=== PATIENT | female | born 1960 | race Caucasian/White ===

== ENCOUNTER → 2019-04-04 | Outpatient (CLI) | payer MEDICARE | END | disposition home or self-care (01) | LOC: LAB SHORT 12:00 → LAB 12:00 | DX: N89.8 Other specified noninflammatory disorders of vagina (principal) | CPT/HCPCS: 87070; 87205 ==

== ENCOUNTER 2021-01-20 18:58 | Inpatient (IN) | payer MEDICARE, OTHER ==
[~2021-01-20] VITALS: Ht 165.1 cm; Wt 89.6 kg
[2021-01-20 20:02] LABS: Influenza A, PCR NEGATIVE (NEGATIVE); Influenza B, PCR NEGATIVE (NEGATIVE); Resp Syncytial Virus, PCR NEGATIVE (NEGATIVE)
[2021-01-20 20:11] LABS: BASOPHILS ABSOLUTE AUTO 0.01 K/mm3 (0.00-0.23); BASOPHILS PERCENT AUTO 0 % (0-2); EOSINOPHILS PERCENT AUTO 0 % (0-6); Hematocrit 43.7 % (33.0-51.0); Hemoglobin 14.8 g/dL (11.5-16.0); IMMATURE GRAN ABSOLUTE AUTO 0.02 K/mm3 (0.00-0.10); IMMATURE GRAN PERCENT AUTO 0 % (0-1); LYMPHOCYTES ABSOLUTE AUTO 0.69 K/mm3 (0.84-5.20); LYMPHOCYTES PERCENT AUTO 13 % (21-46); MONOCYTES ABSOLUTE AUTO 0.16 K/mm3 (0.16-1.47); MONOCYTES PERCENT AUTO 3 % (4-13); Mean Corpuscular HGB 31.7 pg (26.0-34.0); Mean Corpuscular HGB Conc 33.9 g/dL (31.5-36.5); Mean Corpuscular Volume 94 fL (80-100); Mean Platelet Volume 9.6 fL (9.1-12.4); NEUTROPHILS ABSOLUTE AUTO 4.64 K/mm3 (1.96-9.15); NEUTROPHILS PERCENT AUTO 84 % (41-73); Platelet Count 172 K/mm3 (150-400); RDW Coefficient Variation 12.9 % (11.7-14.2); RDW Standard Deviation 44.2 fL (35.1-46.3); Red Blood Cell Count 4.67 M/mm3 (3.80-5.20); White Blood Cell Count 5.52 K/mm3 (4.00-11.30)
[2021-01-20 20:11] LABS: SARS-Cov-2 (COVID-19) PCR, MMC POSITIVE (NEGATIVE)
[2021-01-20 20:32] LABS: Alanine Aminotransfer (ALT/SGP 46 U/L (12-78); Albumin, Blood 2.7 g/dL (3.4-5.0); Albumin/Globulin Ratio 0.6 (0.8-1.8); Alk Phos 78 U/L (50-136); Anion Gap 5 mmol/L (6-16); Aspartate Aminotrans (AST/SGOT 54 U/L (12-37); Bilirubin, Total 0.4 mg/dL (0.1-1.0); Blood Urea Nitrogen 10 mg/dL (8-24); Bun/Creatinine Ratio 14.8 (12.0-20.0); CO2, Blood 25 mmol/L (21-32); Calcium, Blood 8.6 mg/dL (8.5-10.1); Chloride, Blood 106 mmol/L (98-108); Creatinine, Blood 0.68 mg/dL (0.40-1.00); Globulin, Blood 4.6 g/dL (2.2-4.0); Glomerular Filtration Rate >60 (60-); Glucose, Blood 112 mg/dL (70-99); Potassium, Blood 4.3 mmol/L (3.5-5.5); Sodium, Blood 136 mmol/L (136-145); Total Protein, Blood 7.3 g/dL (6.4-8.2)
[2021-01-20] MEDS ORDERED: IPRAT-ALBUT 0.5-3 ML INH (21:36)
[2021-01-20] MEDS ORDERED: LEVOTHYROXINE PO (21:37)
[2021-01-20] MEDS ORDERED: CARBLEV250 SL (21:38)
[2021-01-20] MEDS ORDERED: OMEP20ER PO (21:39)
[2021-01-20] MEDS ORDERED: PIRO10 PO (21:39)
[2021-01-20] MEDS ORDERED: MONT10T PO (21:39)
[2021-01-20] MEDS ORDERED: Lovastatin20 MG PO (21:39)
[2021-01-20] MEDS ORDERED: FLUT1DIS8 INH (21:39)
[2021-01-20] MEDS ORDERED: COMBIVENT RESPIM4 G1 INH (21:40)
[2021-01-20] MEDS ORDERED: CLIMARA1 EACH TOP (21:40)
[2021-01-20] MEDS ORDERED: prempro (21:42)
[2021-01-21 08:24] LABS: Ferritin, Serum 1200 ng/mL (8-252); Lactate Dehydrogenase (Ld),Bld 431 U/L (100-240)
--- NOTE | 2021-01-21 17:14 | NUR ---
ADMIT NOTE RECIEVED REPORT FROM JOSE BORRERO IN ED. PT TO ROOM VIA GURNEY, TRANSFER 2 PERSON ASSIST TO BED. PT DESATURATED ON 15L HF TO 80-87%, REPLACED AIRVO AT 55L AND 77% FIO2; PT SLOW RECOVERY, PLACED ON RIGHT SIDE TO SLEEP; TITRATED FIO2 TO 87%; SPO2 >90% WHILE SLEEPING ON SIDE. PT A&Ox4; FORGETFUL AT TIMES. PT DENIES PAIN, CHEST PAIN, NAUSEA AND DIZZINESS. PT RECEIVING IV STEROIDS. OTHER VSS. NO OTHER ACUTE CHANGES NOTED. WILL CONTINUE TO MONITOR UNTIL REPORT GIVEN TO ONCOMING RN.
[2021-01-22 03:57] LABS: BASOPHILS ABSOLUTE AUTO 0.02 K/mm3 (0.00-0.23); BASOPHILS PERCENT AUTO 0 % (0-2); EOSINOPHILS PERCENT AUTO 0 % (0-6); Hematocrit 44.1 % (33.0-51.0); Hemoglobin 14.6 g/dL (11.5-16.0); IMMATURE GRAN ABSOLUTE AUTO 0.04 K/mm3 (0.00-0.10); IMMATURE GRAN PERCENT AUTO 0 % (0-1); LYMPHOCYTES ABSOLUTE AUTO 1.06 K/mm3 (0.84-5.20); LYMPHOCYTES PERCENT AUTO 11 % (21-46); MONOCYTES ABSOLUTE AUTO 0.45 K/mm3 (0.16-1.47); MONOCYTES PERCENT AUTO 5 % (4-13); Mean Corpuscular HGB 31.3 pg (26.0-34.0); Mean Corpuscular HGB Conc 33.1 g/dL (31.5-36.5); Mean Corpuscular Volume 95 fL (80-100); Mean Platelet Volume 9.8 fL (9.1-12.4); NEUTROPHILS ABSOLUTE AUTO 7.92 K/mm3 (1.96-9.15); NEUTROPHILS PERCENT AUTO 84 % (41-73); Platelet Count 193 K/mm3 (150-400); RDW Coefficient Variation 12.7 % (11.7-14.2); RDW Standard Deviation 44.4 fL (35.1-46.3); Red Blood Cell Count 4.66 M/mm3 (3.80-5.20); White Blood Cell Count 9.49 K/mm3 (4.00-11.30)
[2021-01-22 04:20] LABS: Alanine Aminotransfer (ALT/SGP 24 U/L (12-78); Albumin, Blood 2.4 g/dL (3.4-5.0); Albumin/Globulin Ratio 0.5 (0.8-1.8); Alk Phos 74 U/L (50-136); Anion Gap 4 mmol/L (6-16); Aspartate Aminotrans (AST/SGOT 66 U/L (12-37); Bilirubin, Total 0.4 mg/dL (0.1-1.0); Blood Urea Nitrogen 16 mg/dL (8-24); Bun/Creatinine Ratio 27.3 (12.0-20.0); CO2, Blood 28 mmol/L (21-32); Calcium, Blood 9.2 mg/dL (8.5-10.1); Chloride, Blood 108 mmol/L (98-108); Creatinine, Blood 0.59 mg/dL (0.40-1.00); Globulin, Blood 4.5 g/dL (2.2-4.0); Glomerular Filtration Rate >60 (60-); Glucose, Blood 211 mg/dL (70-99); Potassium, Blood 4.6 mmol/L (3.5-5.5); Sodium, Blood 140 mmol/L (136-145); Total Protein, Blood 6.9 g/dL (6.4-8.2)
--- NOTE | 2021-01-22 07:04 | NUR ---
PT DESATS TO 85% WITH BED MOBILITY. REQUIRED NON REBREATEHR OVER HFNC TO RETURN PT TO O2 SAT ABOVE 90%. THEN ABLE TO RETURN TO PREVIOUS HFNC SETTING AND SUSTAIN AT 93%. PT REPORTS FEELING SOB WITH THIS EPISODE, BUT REPORTS IMPROVEMENT WIOTH 02 SAT ABOVE 90%.
--- NOTE | 2021-01-22 18:30 | NUR ---
SHIFT SUMMARY PT A&Ox4; CALM AND COOPERATIVE WITH CARE. PT RESTING IN BED DURING SHIFT. UP TO CHAIR FOR MAJOIRTY OF SHIFT. PT DENIES PAIN, CHEST PAIN, NAUSE AND DIZZINESS. PT SOB WITH EXERTIONS, SPO2 88-92% ON AIRVO 60L AT 84% FIO2; DESATURATED WITH MOVEMENT OR TALKING, RECOVERS QUICKLY. PT RECEIVING IV STEROIDS. OTHER VSS. NO OTHER ACUTE CHANGES NOTED. WILL CONTINUE TO MONITOR UNTIL REPORT GIVEN TO ONCOMING RN.
[2021-01-23 04:49] LABS: BASOPHILS ABSOLUTE AUTO 0.01 K/mm3 (0.00-0.23); BASOPHILS PERCENT AUTO 0 % (0-2); EOSINOPHILS PERCENT AUTO 0 % (0-6); Hematocrit 42.9 % (33.0-51.0); Hemoglobin 14.3 g/dL (11.5-16.0); IMMATURE GRAN ABSOLUTE AUTO 0.07 K/mm3 (0.00-0.10); IMMATURE GRAN PERCENT AUTO 1 % (0-1); LYMPHOCYTES ABSOLUTE AUTO 0.85 K/mm3 (0.84-5.20); LYMPHOCYTES PERCENT AUTO 8 % (21-46); MONOCYTES PERCENT AUTO 6 % (4-13); Mean Corpuscular HGB 31.4 pg (26.0-34.0); Mean Corpuscular HGB Conc 33.3 g/dL (31.5-36.5); Mean Corpuscular Volume 94 fL (80-100); Mean Platelet Volume 10.5 fL (9.1-12.4); NEUTROPHILS PERCENT AUTO 86 % (41-73); Platelet Count 248 K/mm3 (150-400); RDW Coefficient Variation 12.5 % (11.7-14.2); RDW Standard Deviation 43.5 fL (35.1-46.3); Red Blood Cell Count 4.56 M/mm3 (3.80-5.20); White Blood Cell Count 10.83 K/mm3 (4.00-11.30)
[2021-01-23 05:11] LABS: Anion Gap 5 mmol/L (6-16); Blood Urea Nitrogen 20 mg/dL (8-24); Bun/Creatinine Ratio 36.8 (12.0-20.0); CO2, Blood 26 mmol/L (21-32); Calcium, Blood 9.2 mg/dL (8.5-10.1); Chloride, Blood 107 mmol/L (98-108); Creatinine, Blood 0.54 mg/dL (0.40-1.00); Glomerular Filtration Rate >60 (60-); Glucose, Blood 217 mg/dL (70-99); Potassium, Blood 4.5 mmol/L (3.5-5.5); Sodium, Blood 138 mmol/L (136-145)
--- NOTE | 2021-01-23 10:44 | NUR ---
CARE ASSUMPTION THIS RN ASSUMED CARE FROM AGNIESZKA GARCIA AT 0700. PATIENT IS A/OX4. VSS. SPO2 >90% ON CPAP 10 80%. PATIENT REPORTS NO PAIN, CHEST PAIN, OR SHORTNESS OF BREATH. PATIENT SITTING IN CHAIR AND PERFERS TO SIT IN CHAIR THAN LAY IN BED. PATIENT IS A STAND BY ASSIST TO BEDSIDE COMODE. CALL LIGHT WITHIN REACH. WILL CONTINUE TO MONITOR AND PROVIDE CARE
--- NOTE | 2021-01-23 18:44 | NUR ---
SHIFT SUMMARY PATIENT A/OX4. VSS. SPO2>90% ON AIRVO 55 80%. PATIENT HAS SOB WITH ACTIVITY. PATIENT RATHER LAY IN CHAIR THAN BED, STATES IT IS MORE COMFORTABLE. NO ACUTE CHANGES THIS SHIFT. CALL LIGHT WITHIN REACH. WILL CONTINUE TO MONITOR AND PROVIDE CARE UNTIL HAND OFF WITH NEXT SHIFT.
--- NOTE | 2021-01-24 01:26 | NUR ---
PATIENT INCREASED ANXIETY THIS EVENING " MACHINE NOT WORKING" NOTED PATIENT TAKING AIRVO OFF EARLIER THIS EVENING, EDUCATION WAS PROVIDED, DESATURATIONS 83-84% INCREASED FIO2 85 TO 90%, PATIENT BECAME INCREASILY ANXIOUS AND WANTING A NEW MACHINE ASKING FOR RESPIRATORY, THIS LN CALLED RESPIRATORY ASKING ARAMIS IF HE COULD SPEAK WITH PATIENT AND COMFORT HER, I CALLED DR. MICHAEL ON ANXIETY, NO NEW ORDERS AT THIS TIME, WANTS TO KNOW IF RESPIRATORY WILL PUT HER ON CPAP/BIPAP THAT DOESN'T DECREASE ANXIETY TO CALL DR. MICHAEL BACK, [facility].
--- NOTE | 2021-01-24 02:11 | NUR ---
PATIENT FIO2 WAS INCREASED TO 95% PATIENT HAD INCREASED ANXIETY, ARAMIS CALLED DR. MICHAEL, THIS LN RECEIVED NEW ORDERS FOR LORAZEPAM 0.5-1MG IVP X ONE, PATIENT RECEIVED 1MG IVP ATIVAN SATURATIONS > 91% AIRVO 55L FIO2 95% RESTING COMFORTABLY IN BED NOT PULLING ON TUBING AND TAKING OUT OF NOSTRILS.
--- NOTE | 2021-01-24 05:31 | NUR ---
PATIENT CURRENTLY IS ON CPAP 12 1 FLEX 85% FIO2 RR 31 SATURATIONS 91-93%, ANXIOUS TRIES TO REMOVE MASK HAVING TO GO IN READJUST MULTIPLE TIMES, EDUCATION IS PROVIDED WITH EACH ENCOUNTER, PATIENT HAD ONLY SLEPT ABOUT AN HOUR TONIGHT AFTER GETTING ATIVAN SEEMED MORE RELAXED UNTIL AROUND 0430. LUNGS ARE DIMINISHED THROUGHOUT LUNG CHUA, DRY COUGH, UNABLE TO TOLERATE WITH MASK OFF, WAS PREVIOUSLY ON AIRVO 55L 85% FIO2 ADJUSTED TO 60L 100% FIO2 DESATURATIONS IN 80'S WAS SWITCHED TO CPAP NOW STABLE AT 91-93%. WCTM UNTIL SHIFT CHANGE.
--- NOTE | 2021-01-24 09:11 | NUR ---
Pt switched over to Airvo, to take morning medications. She is tolerating it well.
--- NOTE | 2021-01-24 15:38 | NUR ---
Pt c/o new IV in the LAC space "tender". Requested new IV placeed. Attempted once in the right arm, but unsuccessful. AFter that pt stated, "Let's just leave the other one in, it's okay for now." States that she is really tired and just wants to sleep. Blinds closed, room lights dimmed. She is still wearing the AirVo, and spo2 95% on 90% fio2, 60 liter O2 flow.
--- NOTE | 2021-01-24 22:23 | NUR ---
CARE NOTE PT IS ALERT AND ORIENTED X 4, ABLE TO MAKE NEEDS KNOWN. PT DENIED CHEST PAIN/PRESSURE BUT REPORTED HEADACHE. MEDICATED PER EMAR. PT WAS ON AIRVO 60L 85% FIO2 WHEN ASSUMED CARE. PT IS MOUTH BREATHER WHEN SLEEPING AND WOULD DESATURATE TO 85%, THIS INCREASED FIO2 TO 100%. THIS NURSE ALSO ENCOURAGED DEEP BREATHIN THROUGH NOSE AND PT MAINTAINED SPO2 88-92%. AFTER MEDICATION PASS AT 2100, THIS NURSE ENCOURAGED PT TO UTILIZE CPAP DUE TO PT APPEARING FATIGUED BY EFFORT TO BREATH ON AIRVO. RESPIRATORY THERAPIST JUAN ASSISTED THIS NURSE IN CHANGING AIRVO TO CPAP, PRESSURE 12, FIO2 90% AND SPO2 NOW 96%. REMDESIVIR NOW INFUSING PER ORDERS. PT UTILIZED BEDSIDE COMMODE. CALL LIGHT IN REACH. WILL CONTINUE TO MONITOR.
--- NOTE | 2021-01-25 04:51 | NUR ---
SHIFT SUMMARY PT ALERT AND ORIENTED X 4. PT NOW ON AIRVO 60L 100% FIO2 AND SPO2 AT 97%, THIS NURSE WILL TITRATE FIO2 DOWN NEXT TIME IN ROOM TOLERATED. VITAL SIGNS HAVE REMAINED STABLE. PT DESATURATES WITH EXERTION TO 85-88% BUT RECOVERS QUICKLY. SHE CONTINUED TO DENY CHEST PAIN/PRESSURE DURING SHIFT. NO CARDIAC EVENTS DURING SHIFT, PLANTING MACHINE OPERATOR IN PLACE AND PT REMAINS IN SR PER REPORT. NO OTHER ACUTE CHANGES NOTED. CALL LIGHT IN REACH. WILL CONTINUE TO MONITOR.
--- NOTE | 2021-01-25 18:37 | NUR ---
SHIFT SUMMARY PT HAS BEEN RESTING QUIETLY IN ROOM. PT HAS SPENT A LARGE PORTION OF THE DAY IN THE BEDSIDE CHAIR AND REQUESTED ASSISTANCE TO GET BACK TO BED AROUND 1700. PT HAS BEEN WITHDRAWN WITH A FLAT AFFECT. VITAL SIGNS HAVE BEEN STABLE, SpO2 HAS MAINTAINED >88%. PT GETS SHORT OF BREATH WITH ANY ACTIVITY.
--- NOTE | 2021-01-26 17:04 | NUR ---
A&Ox4, pleasant with cares. VSS on heated highflow day care aide during the day at 65L and 95% sating low to mid 90s. IV solumedrol given. COVID precautions taken.RT administered nebs and inhalers. Up SBA to commode.
[2021-01-27 05:07] LABS: Albumin, Blood 2.2 g/dL (3.4-5.0); Anion Gap 7 mmol/L (6-16); Blood Urea Nitrogen 18 mg/dL (8-24); Bun/Creatinine Ratio 41.7 (12.0-20.0); CO2, Blood 28 mmol/L (21-32); Calcium, Blood 8.8 mg/dL (8.5-10.1); Chloride, Blood 101 mmol/L (98-108); Creatinine, Blood 0.43 mg/dL (0.40-1.00); Glomerular Filtration Rate >60 (60-); Glucose, Blood 331 mg/dL (70-99); Magnesium, Blood 2.4 mg/dL (1.6-2.4); Phosphorus, Blood 3.2 mg/dL (2.5-4.9); Potassium, Blood 4.8 mmol/L (3.5-5.5); Sodium, Blood 136 mmol/L (136-145)
--- NOTE | 2021-01-27 07:22 | NUR ---
SHIFT SUMMARY PT ON CPAP 12 95% FIO2 WHILE ASLEEP, AIRVO 65L 95% FIO2 WHILE AWAKE. ALERT AND ORIENTED X4. PLEASANT AND COOPERATIVE TO CARE. C/O 8/10 HEADACHE TO START EVENING, RELIEVED PER TYLENOL. X1 SBA TO BEDSIDE COMMODE. MAINTAINED SATS OVER 92% AT REST, DESATS WITH ACTIVITY. HR NSR, BP STABLE. PT IN BED AWAKE WITH CALL ALARM AT SIDE
--- NOTE | 2021-01-27 17:08 | NUR ---
Pt is A&O, pleasant with cares. VSS on heated highflow ethyl blender. Pt was titrated down to 65L and 85% today sating mid 90s most of the time. Pt does drop to low to mid 80s when up to the BSC.
[2021-01-28 11:43] LABS: Source, Urine Clean Catch
[2021-01-28 12:02] LABS: Appearance, Urine Clear (Clear); Bilirubin, Urine Neg (Neg); Blood, Urine 3+ (Neg); Color, Urine Yellow (P-Yellow); Glucose Qualitative, Urine 4+ (Neg); Ketones, Urine Neg (Neg); Leukocyte Esterase, Urine Neg (Neg); Nitrite, Urine Neg (Neg); Protein, Urine Neg (Neg); Specific Gravity, Urine 1.015 (1.003-1.022); Urobilinogen, Urine NORM (Normal); pH, Urine 6.5 (5.0-8.0)
[2021-01-28 12:14] LABS: Bacteria Few /hpf; Mucus Light (0-Heavy); Squamous Epithelial Cells Mod /hpf (Few); White Blood Cells, Urine 0-2 /hpf (0-5)
--- NOTE | 2021-01-28 16:16 | NUR ---
Pt is A&O x4, pleasant with cares. VSS on heated highflow bulk pallet builder settings at 55L 70-80% FiO2. Pt desats when up to commode to low 80s. Pt was up in chair for several hours today. Pt is working on laying on sides and stomach as much as possible. Pt complained of frequent urination and sediment seen in urine, notified and UA ordered. +glucose and blood in urine. Chem panel showed glucose has been elevated in AM. POCT taken and cbg was 398, MD notifed and sliding scale was added in along with ACHS orders. Pt reported that she previously did take metformin for DM, but has been diet controlled the last 4 years. Pt is receiving IV solumedrol.
--- NOTE | 2021-01-29 08:15 | NUR ---
INITIAL ASSESSMENT: Patient was resting on her right side sleeping, easily awakens with verbal stimuli. Patient is alert and oriented x4. She denies pain at this time. HRR. LS Dim T/O, she is 90% on AIRVO 60l FIO2 100%. Patient has a harsh cough, she states she has been coughing up green sputum. BT+. PPP. VSS. Patient assisted to the BSC and then the chair, with activity her oxygen saturations dropped to the high 70s. After about 5min she was able to recover back up to 90%. AM meds given at this time. CBG 338, 8 units regular insulin given. Patient denies other needs at this time, Call light in reach. Will continue to monitor.
--- NOTE | 2021-01-29 10:50 | NUR ---
Fall: This RN was assisting patient back to bed, she used the BSC and then was headed back to bed. She took one step and then her legs gave out from underneath her, this RN assisted her to the floor. Patient denies pain. She has two small red abrasions on her back from scraping against the BSC. She deneis pain. VSS. Patient was assisted back to bed via 3 person assist. MD notified. Patient denies other needs at this time. Call light in reach, will continue to monitor.
--- NOTE | 2021-01-29 12:15 | NUR ---
Update: Post fall the patient was hypertensive, BP has normalized now. CBG 422, notified, 20 units long acting insulin given and 10 units of regular insulin per medium sliding scale. Patient denies other needs at this time. Call light in reach, will continue to monitor.
--- NOTE | 2021-01-29 16:30 | NUR ---
Assessment: Assessment unchanged from initial assessment. VSS. Patient is in bed lying on her left side. I attempted to titrate her high flow NC down to 50L and 90% FIO2, while at rest patients saturations are dropping down to 85%, FIO2 increased back up to 95%, pts oxygen saturations increased to 90%. Patient denies needs at this time. Call light in reach, will continue to monitor.
--- NOTE | 2021-01-29 18:46 | NUR ---
Summary: Patient had a good day. At the start of the shift she was on 60L 100% FIO2, she is currently down to 50L 100%. VSS t/o the shift. Blood sugars have been above 300 all day, MD aware, Momo added. Patient had an assisted fall today after trying to get back to bed from the BSC, small abrasions to mid back sustained, otherwise patient has had no c/o pain. Patient has been OOB for breakfast and dinner, her oxygen saturations improve while sitting in the recliner. No other changes this shift, will report to oncoming RN.
--- NOTE | 2021-01-30 18:32 | NUR ---
SHIFT SUMMARY PT A&O X4. SPO2 > 90% ON AIRVO @ 60L, FIO2 100%. PT DESAT W/ ACTIVITY, BUT QUICKLY RECOVERS W/ NONREBREATHER APPLIED IN ADDITION TO AIRVO. PT CBG ELEVATED, INSULIN MEDIUM CS INCREASED TO HIGH CS THIS SHIFT PER MD.
--- NOTE | 2021-01-31 06:23 | NUR ---
VSS. MILD SOB AT START OF SHIFT. SCHEDULED NEBS/RT TX GIVEN. PT STATES THEY "HELP HER GREATLY". AIRVO AT 60L/100% O2. DNR STATUS. NONREBREATHER AT BEDSIDE. PT USES PRN. 1 ASSIST TO BSC. PT CALLS APPROPRIATELY. BIPAP HS. NO ISSUES THROUGHOUT SHIFT.
--- NOTE | 2021-01-31 19:43 | NUR ---
SHIFT SUMMARY PT A&O X4. PT CONTINUES ON AIRVO @ 60L, FIO2 95-100% W/ FREQUENT USE OF 15L NRB IN ADDITION TO AIRVO FOR GETTING UP TO BSC OR ASSISTANCE AT REST WHEN SOB. OTHER VSS. NO EVENTS T/O DAY.
--- NOTE | 2021-02-01 07:02 | NUR ---
SHIFT SUMMARY PT IS ALERT AND ORIENTED. SHE IS VERY WEAK THIS MORNING AND WAS UNABLE TO GET UP TO BSC WITH ASSIST. VITAL SIGNS ARE STABLE AND THERE HAVE BEEN NO ACUTE CHANGES. SHE HAS BEEN ON CPAP 12/100% FIO2 WITH SATS ABOVE 88% AND WOULD DESAT UPON EXERTSION TO LOW 80'S BUT WILL RECOVER QUICKLY. ON THE HFT SETTINGS SHE IS 60L 100% FIO2 AND NONREBREATHER OVER WHEN NEEDED PER PT. CALL LIGHT IS WITHIN REACH.
--- NOTE | 2021-02-01 10:17 | NUR ---
CARE ASSUMPTION THIS RN ASSUMED CARE FROM JOSE RN AT 0700. PATIENT IS A/OX4. VSS. SPO2 >90% ON CPAP 12 100%. PATIENT DESATS WITH ANY EXERTION INTO 80S, AND RECVOERS SLOWLY. PATIENT IS ABLE TO CHANGE POSITIONS IN THE BED WITH MINIMAL HELP. CALL LIGHT WITHIN REACH AND BED IN LOWEST POSITION. WILL CONTINUE TO MONITOR AND PROVIDE CARE.
--- NOTE | 2021-02-01 18:12 | NUR ---
SHIFT SUMMARY PATIENT A/OX4. VSS. SPO2 >88% ON CPAP THROUGHOUT THE DAY. PATIENT CURRENTLY EATING AND SPO2 IS ABOUT 86-87 ON AIRVO 66N901% AND NRB AT 15L. NO ACUTE CHANGES. CALL LIGHT WITHIN REACH. WILL CONTINUE TO MONITOR AND PROVIDE CARE UNTIL HAND OFF WITH NEXT SHIFT.
--- NOTE | 2021-02-02 05:56 | NUR ---
SHIFT SUMMARY PT IS ALERT AND ORIENTED. VITALS HAVE BEEN STABLE. THERE HAVE BEEN NO CHANGES. PT REMAIN AT SAME SETTING FOR OXYGENATION. PT FEELS VERY WEAK. SHE WAS ABLE TO GET UP TO THE COMMODE WITH A STRUGGLE AND DESATING IN THE LOW 80'S. PT SEEMS FRUSTRATED WITH CARE BUT IS COOPERATIVE. CALL LIGHT IS WITHIN REACH.
--- NOTE | 2021-02-02 09:55 | NUR ---
CARE ASSUMPTION THIS RN ASSUMED CARE FROM ELSA RN AT 0700. PATIENT IS A/OX4. VSS. SPO2 >90% ON CPAP 12 100%. PATIENT REPORTS NO CHEST PAIN, PAIN, OR SOB. CALL LIGHT WITHIN REACH. WILL CONTINUE TO MONITOR AND PROVIDE CARE
--- NOTE | 2021-02-02 18:22 | NUR ---
SHIFT SUMMARY PATIENT IS A/OX4. VSS. SPO2 >90% PM AIRVO 60L 100% AND USES NRB AT 15L WHEN NEEDED FOR SOB WHILE ON AIRVO. NO ACUTE CHANGES THIS SHIFT. WILL CONTINUE TO MONITOR AND PROVIDE CARE UNTIL HAND OFF WITH NEXT SHIFT. CALL LIGHT WITHIN REACH AND BED IN LOWEST POSITION.
[2021-02-03 04:20] LABS: BASOPHILS ABSOLUTE AUTO 0.03 K/mm3 (0.00-0.23); BASOPHILS PERCENT AUTO 0 % (0-2); EOSINOPHILS ABSOLUTE AUTO 0.01 K/mm3 (0.00-0.68); EOSINOPHILS PERCENT AUTO 0 % (0-6); Hematocrit 41.5 % (33.0-51.0); IMMATURE GRAN ABSOLUTE AUTO 0.17 K/mm3 (0.00-0.10); IMMATURE GRAN PERCENT AUTO 1 % (0-1); LYMPHOCYTES ABSOLUTE AUTO 0.55 K/mm3 (0.84-5.20); LYMPHOCYTES PERCENT AUTO 3 % (21-46); MONOCYTES ABSOLUTE AUTO 0.38 K/mm3 (0.16-1.47); MONOCYTES PERCENT AUTO 2 % (4-13); Mean Corpuscular HGB 31.5 pg (26.0-34.0); Mean Corpuscular HGB Conc 33.7 g/dL (31.5-36.5); Mean Corpuscular Volume 93 fL (80-100); Mean Platelet Volume 11.3 fL (9.1-12.4); NEUTROPHILS ABSOLUTE AUTO 15.61 K/mm3 (1.96-9.15); NEUTROPHILS PERCENT AUTO 93 % (41-73); Platelet Count 221 K/mm3 (150-400); RDW Standard Deviation 41.2 fL (35.1-46.3); Red Blood Cell Count 4.45 M/mm3 (3.80-5.20); White Blood Cell Count 16.75 K/mm3 (4.00-11.30)
[2021-02-03 04:54] LABS: Alanine Aminotransfer (ALT/SGP 28 U/L (12-78); Albumin, Blood 1.7 g/dL (3.4-5.0); Albumin/Globulin Ratio 0.5 (0.8-1.8); Alk Phos 103 U/L (50-136); Anion Gap 8 mmol/L (6-16); Aspartate Aminotrans (AST/SGOT 18 U/L (12-37); Bilirubin, Total 0.5 mg/dL (0.1-1.0); Blood Urea Nitrogen 17 mg/dL (8-24); Bun/Creatinine Ratio 41.7 (12.0-20.0); CO2, Blood 29 mmol/L (21-32); Calcium, Blood 8.9 mg/dL (8.5-10.1); Chloride, Blood 103 mmol/L (98-108); Creatinine, Blood 0.41 mg/dL (0.40-1.00); Globulin, Blood 3.7 g/dL (2.2-4.0); Glomerular Filtration Rate >60 (60-); Glucose, Blood 115 mg/dL (70-99); Potassium, Blood 4.4 mmol/L (3.5-5.5); Sodium, Blood 140 mmol/L (136-145); Total Protein, Blood 5.4 g/dL (6.4-8.2)
--- NOTE | 2021-02-03 05:47 | NUR ---
SHIFT SUMMARY PT ALERT AND ORIENTED. THERE HAVE BEEN NO ACUTE CHANGES. VITAL SIGNS HAVE BEEN STABLE AND NO CHANGES TO OXYGENATION SETTINGS. CPAP 12 FIO2 100%. PT HAS BEEN FRUSTRATED AND EMOTIONAL T/O THE NIGHT. SHE WAS UNABLE TO GET UP TO THE COMMODE DUE OT WEAKNESS AND USED A BEDPAN. CALL LIGHT IS WITHIN REACH.
[2021-02-03 18:32] LABS: PCO2 Arterial 39.8 mmHg (35-45); PO2 Arterial 60.5 mmHg (80-100); pH Blood Arterial 7.45 (7.35-7.45)
--- NOTE | 2021-02-03 18:38 | NUR ---
SHIFT SUMMARY PT HAS BEEN RESTING IN BEDSIDE CHAIR AND BED. PT DESATS WITH ANY ACTIVITY, AT TIMES DROPPING TO 70% SpO2. PT RECOVERS OXYGEN SATURATION SLOWLY AND STEADILY. SpO2 HAS BEEN 88-91% FOR THE MAJORITY. PT HAS HAD A FLAT AFFECT AND EXPRESSED A FRUSTRATION WITH THE DISEASE PROCESS AND MEDICAL INTERVENTIONS. PT HAS EXPRESSED NO C/O.
[2021-02-04 00:43] LABS: PCO2 Arterial 44.4 mmHg (35-45); pH Blood Arterial 7.45 (7.35-7.45)
[2021-02-04 00:44] LABS: PO2 Arterial 45.8 mmHg (80-100)
--- NOTE | 2021-02-04 06:25 | NUR ---
SHIFT SUMMARY ASSUMED CARE OF PT AT 1900. PT IS A/OX4. HEART SOUNDS REGULAR. LUNG SOUNDS VERY COURSE WITH WHEEZES. PT OXYGEN NEEDS INCREASED T/O THE EVENING. PT WENT DOWN TO HER PE STUDY ON THE CPAP BUT UPON REENTRY TO UNIT, PT SATURATIONS REMAINED BETWEEN 83-85%. RT CONSULTED AND ABG WAS DONE. RESULTS IN EMAR. HOSPITALIST NOTIFIED AND TALKED WITH RT ON THE PHONE. PT WAS TURNED TO BIPAP AT 22/14 AT 100%. HOSPITALIST SAID THERE IS NOT MUCH TO DO FOR PT EXCEPT TO CALL THE FAMILY AND TELL THEM THAT SHE IS DOING WORSE. CHARGE NURSE ABHAY WENT TO TALK WITH PT AND ENCOURAGED HER TO PRONE. PT DID NOT WANT FAMILY CALLED. PT OXYGEN SATURATIONS SLOWLY IMPROVED AND PT TOUCHED INTO 95%. PT DESATURATED WITH MORNING MEDICATIONS TO 77% BUT THEN RECOOPERATED AFTER 3 MIN BACK TO 90%. PT USED BEDPAN T/O THE NIGHT. PT AFFECT IS VERY FLAT AND WITHDRAWN. PT WAS UPSET AT THE START OF SHIFT ABOUT NOT GETTING HER MEDICATION ON HER SCEDULED TIMES AT HOME AND HAVING HER DOCTOR CHANGE HER MEDICATIONS. PT DID NOT SLEEP VERY WELL DUE TO OXYGEN NEEDS. PT C/O HEADACHE AND NECK PAIN, MEDICATED PER EMAR. CALL LIGHT IN REACH, BED IN LOWEST POSTION.
--- NOTE | 2021-02-04 13:57 | NUR ---
Called to meet with pt getting increasingly aggitated. Doctor Felipe consulted to see pt maxing out on bipap and sats dropping. Pt has advance directive and is adamant about no intubation. Nursing stated pt wanting to transfer to [place] to be closer to her family and decion maker. Struggling with excepting that she cant make alteral transfer. She is escalating in her fear and agitation and dyspnea.therputic time with her trying to calm her very difficult. she has been texting her family. Called her decision maker to review her care. Her decision maker is karen gregg. [phone]. Review her declining status and low oxygen sats and needing intubation. Michelle was tearful and asked if she changed her mind and went on ventilator would she come off the vent. Revied possible common senariors of extubation and frailtye. getting a trach and terminal makeup operator care and not surviving and needing terminal withdrawl. She stated she would not want any of those intervention. She acknowledged she might pass. Her doggy daycare activities director also stated the same. Will keep her supported on bipapa and intiatie palliative medications for extreme air hunger. will update family.
--- NOTE | 2021-02-04 17:30 | NUR ---
SHIFT SUMMARY PT HAS NOT TOLERATED HIGH FLOW THERAPY SETTINGS. BIPAP AT 22/18 100% HAS MAINTAINED SpO2 OF 88-90%. PT HAD AN EPISODE OF AGITATION AND ANXIETY WHERE THEY WERE CONTINUALLY FIDGETING WITH THEIR BIPAP MASK AND MAINTAINED A STEADY 82% SpO2 FOR APPROXIMATELY 1 HOUR. WITH SOME MEDICATION FOR AGITATION AND AIR HUNGER, PT WAS ABLE TO RELAX AND MAINTAIN SpO2 OF 88-90%.
--- NOTE | 2021-02-05 05:28 | NUR ---
HITCH TECHNICIAN SUMMARY PT IS AXO X4. PT BEGAN THE SHIFT VERY AGITATED AND ANXIOUS HOWEVER CALMED DOWN AND WAS VERY REMORSEFUL FOR HER BEHAVIOR TOWARDS STAFF. PT'S O2 SATS REMAINED IN THE MID 80'S THIS SHIFT W A HIGH ORF 88% AND A LOW OF 69% WHEN HER MASK WAS ACCIDENTLY REMOVED BY THE PT. OT GIVEN IV MORPHINE X2 THIS SHIFT WHICH APPEARED TO HELP HER AIR HUNGER AND IMPROVE HER BREATHING PATTERN. BP WNL AND STABLE THIS SHIFT. PT AFEBRILE THIS SHIFT. PT ABLE TO SLEEP COMFORTABLY FOR THE SECOND HALF OF THE SHIFT. WILL REPORT TO ONCOMING RN.
[2021-02-05 09:46] LABS: Alanine Aminotransfer (ALT/SGP 37 U/L (12-78); Albumin, Blood 1.8 g/dL (3.4-5.0); Albumin/Globulin Ratio 0.4 (0.8-1.8); Alk Phos 126 U/L (50-136); Anion Gap 9 mmol/L (6-16); Aspartate Aminotrans (AST/SGOT 25 U/L (12-37); Bilirubin, Total 0.7 mg/dL (0.1-1.0); Blood Urea Nitrogen 26 mg/dL (8-24); Bun/Creatinine Ratio 63.4 (12.0-20.0); CO2, Blood 28 mmol/L (21-32); Calcium, Blood 9.2 mg/dL (8.5-10.1); Chloride, Blood 105 mmol/L (98-108); Creatinine, Blood 0.41 mg/dL (0.40-1.00); Globulin, Blood 4.3 g/dL (2.2-4.0); Glomerular Filtration Rate >60 (60-); Glucose, Blood 72 mg/dL (70-99); Magnesium, Blood 2.1 mg/dL (1.6-2.4); Phosphorus, Blood 3.5 mg/dL (2.5-4.9); Potassium, Blood 4.1 mmol/L (3.5-5.5); Sodium, Blood 142 mmol/L (136-145); Total Protein, Blood 6.1 g/dL (6.4-8.2)
--- NOTE | 2021-02-05 15:35 | NUR ---
called by nursing pt starting to decline less urine output, Sats dropping more aggitation and respirory stress. Notified her best friend and pt designated decision maker karen spears. updated her on her decline. Asked of edson wanted to come in he is on the road. pt did not want family involved but karen contacted them. Sister called [facility] knew she was in hospital. Offered to let her or family come in, She cannot come in her mother is home from the halfway but to dabilitated to come, They also fear covid. adjuted prn medication for increasing airhunger. chaplian with her updated him on her failth and strong wishes. will keep family updated and moitor symptoms.
--- NOTE | 2021-02-05 15:37 | NUR ---
Spiritual care visit conducted. Patient is minimally responsive. She says, "yes" to having peace and "yes" to my question about offering a prayer for her. She does not answer any other question. I provide reciation of scripture, inspiring quotes and prayer. I also hold her hand and rub her shoulder. Patient shows no response except for relaxing of her body and especially her face. I will continue to remain available to patient and family.
--- NOTE | 2021-02-05 19:32 | NUR ---
CARE ASSUMPTION PT IS LYING IN BED W FAMILY AT THE BEDSIDE. PT APPEARS IN NO DISTRESS AT THIS TIME. O2 SATS 78-83 AT THIS TIME W BIPAP ON.
--- NOTE | 2021-02-06 06:04 | NUR ---
GLOBAL HUMAN RESOURCES DIRECTOR SUMMARY PT HAS REMAINED NONVERBAL THIS SHIFT BUT WAS ABLE TO NOD YES OR NO WHEN ASKED QUETIONS. PT'S O2 SATS AT 80% FOR FIRST HALF OF SHIFT HOWEVER THIS BEGAN TO DECREASE AND IS NOW AT 73% THIS AM. IV MORPHINE GIVEN THROUGHOUT THE SHIFT FOR AIR HUNGER TO WHICH THE PT RESPONDED WELL TO. WILL REPORT TO ONCOMING RN.
--- NOTE | 2021-02-06 11:40 | NUR ---
Case Conference Note Spoke with cheese grader Gabe, and Primary RN Dagmar. Discussed case and concerns. Pt on comfort care and plan was to titrate oxygen through BIPAP down as comfort allows to assist with peaceful passing. Family came in last night and was not on board. Pt verbally appointed Gisele HobbsAmmon as her healthcare decision maker to [facility]. Pt had fears that family may not respect her goals and wishes. Called and spoke with Gisele. Provided update and discussed plan. Gisele reports Vel who Pt considers as a son is on his way down from [place] and would like to start titrating support down once he arrives. She also reports Pt completed a new advanced directive approximately 1 month ago appointed her and Vel as healthcare decision makers. Gisele will have Vel bring copy with him. Offered therapeutic listening and answered questions. Gisele extresses appreciation and reports no other concerns at this time. Spoke with Dr Martinez and discussed case. Dr Martinez is in agreement with plan. Palliative Care will remain available.
--- NOTE | 2021-02-06 15:51 | NUR ---
Comfort Care Visit Pt resting in bed with her eyes closed and is on BIPAP. Pt appears comfortable with no S/S of distress at this time. Pt's alternate MPOA Vel at bedside and has brought an advanced directive that Pt completed last month. Advanced Directive appoints Gisele Verde as primary healthcare decision maker and Vel Kwon as first alternate decision maker. Gisele is on video via Vel's phone. Pt's mother and sister are also at bedside. Discussed plan with everyone in agreement. BIPAP support titrated down by Primary RN Dagmar and meal cooker Gabe with Pt appears to tolerate and remained comfortable. Plan will be to continue titrate of BIPAP support as comfort will allow. Family expresses appreciation and reports no other concerns at this time. Delivered copy of new Advanced Directive to medical records. Palliative Care will remain available for symptom management and supportive visits.
--- NOTE | 2021-02-06 16:39 | NUR ---
TOD CONFIRMED WITH CHARGE NURSE 1605.
== END 2021-02-06 17:57 | DRG 177 ==
LOC: ER 18:58 → ERHOLD 22:10 → PCU 22:10
PROVIDERS: Family Medicine; Internal Medicine; Physician Assistant; ADMIT Family Medicine
PROC: 8E0ZXY6 Isolation (ICD-10-PCS; principal; 2021-01-20)
PROC: 3E0333Z Introduction of Anti-inflammatory into Peripheral Vein, Percutaneous Approach (ICD-10-PCS; 2021-01-20)
PROC: XW033E5 Introduction of Remdesivir Anti-infective into Peripheral Vein, Percutaneous Approach, New Technology Group 5 (ICD-10-PCS; 2021-01-20)
PROC: 5A0945A Assistance with Respiratory Ventilation, 24-96 Consecutive Hours, High Flow/Velocity Cannula (ICD-10-PCS; 2021-01-22)
PROC: 5A09457 Assistance with Respiratory Ventilation, 24-96 Consecutive Hours, Continuous Positive Airway Pressure (ICD-10-PCS; 2021-01-23)
PROC: 5A0955A Assistance with Respiratory Ventilation, Greater than 96 Consecutive Hours, High Flow/Velocity Cannula (ICD-10-PCS; 2021-01-25)
PROC: XW0DXM6 Introduction of Baricitinib into Mouth and Pharynx, External Approach, New Technology Group 6 (ICD-10-PCS; 2021-02-04)
DX: U07.1 COVID-19 (principal); J12.82 Pneumonia due to coronavirus disease 2019; J96.01 Acute respiratory failure with hypoxia; J44.0 Chronic obstructive pulmonary disease with (acute) lower respiratory infection; Z66 Do not resuscitate; Z51.5 Encounter for palliative care; G25.81 Restless legs syndrome; R73.9 Hyperglycemia, unspecified; T38.0X5A Adverse effect of glucocorticoids and synthetic analogues, initial encounter; M54.9 Dorsalgia, unspecified; K21.9 Gastro-esophageal reflux disease without esophagitis; G89.29 Other chronic pain; E03.9 Hypothyroidism, unspecified; E78.5 Hyperlipidemia, unspecified; Z79.899 Other long term (current) drug therapy; Z99.81 Dependence on supplemental oxygen; Z87.891 Personal history of nicotine dependence; Z28.21 Immunization not carried out because of patient refusal
CPT/HCPCS: 0241U; 36415; 36600; 71045; 71260; 80048; 80053; 80069; 81001; 82728; 82803; 82947; 83615; 83735; 84100; 85025; 85379; 86140; 93005; 93010; 94640; 94660; 94664; 94668; 94762; 96372; 96374; 96375; 99285-25; A9270; C9399; J1100; J1650; J1815; J2060; J2270; J2930; Q9967